=== PATIENT | female | born 1970 | race Caucasian/White ===

== ENCOUNTER 2016-12-01 17:48 | Emergency (ER) | payer OTHER ==
[~2016-12-01] VITALS: Ht 157.5 cm; Wt 54.0 kg
[~2016-12-01 17:48] MED LIST: DOXY100C PO; IMI25 PO
[2016-12-01 17:53] VITALS: BP 158/96; PULSE 94; RESP 18; O2SAT 99
--- NOTE | 2016-12-01 18:35 | ED.REPORT ---
HPI-General Illness Date of Service Dec 01, 2016 ED Provider: Joel Ortega DO A 46 year old female with a history of heroin abuse presents to the ED requesting a Suboxone prescription. The pt is a patient at [facility] on 16 mg of Suboxone per day, but missed her appointment this week. She is now experiencing withdrawal symptoms including diarrhea, abdominal pain, nausea and anxiety, and is concerned that she will relapse. The pt called [facility] and was instructed to call on Monday for a new appointment. Nursing Notes Stated Complaint: HEROIN/SUBOXONE WITHDRAWAL Chief Complaint: Substance Abuse Nursing Notes Reviewed: Yes Allergies: Coded Allergies: Penicillins (Verified Allergy, Severe, Anaphalatic, 05/30/16) sulfamethoxazole (Verified Allergy, Mild, Hives, Whelps, 05/30/16) trimethoprim (Verified Allergy, Mild, Hives, Whelps, 05/30/16) Scheduled Doxycycline Hyclate (Vibramycin) 100 Mg Capsule 100 MG PO BID Scheduled PRN Sumatriptan (Imitrex) 25 Mg Tablet 25 MG PO [id number] PRN PRN Headache General Time Seen by MD: 18:35 Chief Complaint Other (Meidcation request) Hx Obtained From: Patient Arrived By: Walk-in Sudden in Onset?: No Symptom Duration: Since onset Recent Healthcare: No recent hospitalization Similar Sx Previous: Yes Past Medical History Past Medical History Rheumatoid arthritis Reports: Migraines Past Surgical History Reports: Smoking History Current Every Day Smoker Social History previous heroin abuse Alcohol Use: Denies alcohol use Ambulatory Status Independent Review of Systems Full Review of Systems Respiratory: Denies: Non-productive cough, Shortness of breath Cardiovascular: Denies: Chest pain GI: Reports: Abdominal pain, Diarrhea, Nausea Musculoskeletal: Denies: Back pain, Neck pain Skin: Denies Rash Psychiatric: Reports: Anxiety Complete sys rev & neg: except as marked. Physical Exam Vital Signs Vital Signs Date Time Temp Pulse Resp B/P Pulse Ox O2 Delivery O2 Flow Rate FiO2 12/01/16 19:57 36.2 88 20 175/96 94 Room Air 12/01/16 17:53 37.1 94 18 158/96 99 Room Air Initial VS: Reviewed General/Constitutional: Awake, Alert Head / Eyes: Atraumatic, Normocephalic, PERRL, EOMI ENT: Atraumatic, Airway patent, Mucous membranes moist Neck: Atraumatic, Supple, Full range of motion Respiratory / Chest: Atraumatic, Breath sounds NL, Breath sounds = bilat, No respiratory distress Cardiovascular: Heart rate NL, Regular rhythm, Heart sounds NL Abdomen: Atraumatic, Soft, Non-tender Back: Atraumatic, Full range of motion Upper Extremities Upper Extremity / MS: Atraumatic, Full range of motion Lower Extremity / Pelvis / MS: Atraumatic, Full range of motion Skin: Atraumatic, Color NL, No rash, Warm, Dry Neurologic: Oriented X3, Speech NL, No motor deficits, No sensory deficits Psychiatric: Affect NL, Mood NL Interpretation & Diagnostics Pulse Oximetry Interpretation Pulse Oximetry Interpretation: 99% on room air Pulse Oximetry: Pulse Ox normal Re-Eval/Medical Decision Med Decision/Clinical Course I had a lengthy discussion with Mary regarding Subutex and heroin combination. I warned her that the medicines given tonight did not have the naloxone. I made it very clear to her that if she chooses to use heroin and can and most likely will be life-threatening. We did arrange for her to have a Narcan take home administrative pack. I consulted with Dr. Knight. She was given 8 mg of the Subutex tonight. She is to call first thing tomorrow morning to [facility]. I strongly recommend that she is never abuses heroin again. She agrees to this plan. Source of Hx: Old records Time of Eval: 19:27 Re-Evaluation/Progress Note: Pt rechecked, who is comfortable. The diagnosis and plan for discharge is discussed. The pt understands and agrees with the plan. All questions are addressed at this time. Consultation : Referral / Consult Name: Brendan Ibarra MD Call Returned at: 19:04 Note: Consulted with Dr. Ibarra, Suboxone provider, regarding pt's case. Dr. Ibarra recommends Buprenorphine and follow up at [facility]. Counseled Regarding: Diagnosis, Need for follow-up, When/why to return to ED Discharge & Departure Primary Impression: Opiate withdrawal Disposition: Home Discharge Condition All VS Reviewed: Yes Condition: Stable Patient Instructions: Opioid Dependence (ED), Opioid Withdrawal (ED) Additional Instructions: You were given 8 mg of Buprenorphine in the emergency department. The Buprenorphine does not have the Naloxone in it so use of other opiates while taking the Buprenorphine may lead to life threatening respiratory depression. Keep the Narcan kit with you at all times. If you feel like you are going to abuse heroin, return to the emergency department immediately. If you do abuse heroin, make sure someone can give you the naloxone if you experience respiratory depression. Call [facility] in the morning to see if you can can get an appointment sooner. Return to the emergency department if you experiencing new or worsening symptoms, including withdrawal symptoms. Referrals: Kayden Holland MD (PCP) Scribe Attestation Portions of this note were transcribed by Nyla Rader. I, Dr. Ortega personally performed the history, physical exam and medical decision-making; I reviewed and confirmed the accuracy of the information in the transcribed note. Signed by: Jose Daniel Gomez, 12/01/16 and 1960. copies to: Kayden Holland MD, Todd P DO Dec 01, 2016 18:35 NYLA RADER Dec 01, 2016 18:54
[2016-12-01] MEDS ORDERED: Buprenorphine 2 mg SL Tablet SL ONE (19:10)
[2016-12-01] MEDS ORDERED: _Naloxone 2 mg/2 mL 2 Syringe Kit (NASAL USE) NASAL PRN (19:30)
[2016-12-01 19:57] VITALS: BP 175/96; PULSE 88; RESP 20; O2SAT 94
== END 2016-12-01 19:57 | disposition home or self-care (01) ==
LOC: SED 17:48
DX: F11.23 Opioid dependence with withdrawal (principal); R19.7 Diarrhea, unspecified; R10.9 Unspecified abdominal pain; R11.0 Nausea; F41.9 Anxiety disorder, unspecified; F17.200 Nicotine dependence, unspecified, uncomplicated; Z88.0 Allergy status to penicillin; Z88.2 Allergy status to sulfonamides; Z88.8 Allergy status to other drugs, medicaments and biological substances

== ENCOUNTER 2017-03-12 18:39 | Emergency (ER) | payer OTHER ==
[~2017-03-12] VITALS: Ht 158.8 cm; Wt 54.5 kg
[2017-03-12 18:43] VITALS: BP 149/84; PULSE 83; RESP 16; O2SAT 99
[2017-03-12] MEDS ORDERED: SERT25TA2 PO (18:48)
[2017-03-12] MEDS ORDERED: LISI10TA PO (18:48)
--- NOTE | 2017-03-12 19:11 | ED.REPORT ---
HPI-Chest Pain 40 and Over Date of Service Mar 12, 2017 ED Provider: Abel Reyes MD Patient is a 46 year old female with a history of hypertension and migraines who presents to the ED complaining of chest pain onset around 1700. Associated symptoms include pain that radiates through her back, a headache for the past week, rhinorrhea and chills. The patient describes the pain as sharp and stabbing. She states that the pain is intermittent and an episode lasts about 10 -30 seconds. Patient denies pain with deep inhalation. The patient started Lisinopril on 02/24/17 and thinks her headache may be related to her new medication. She states that she woke up with the a bilateral, frontal headache. Patient reports that her headache is different than her usual migraine. The patient has tried using Alleve and had mild relief of her headache two days ago but it has not helped today. Nursing Notes Stated Complaint: CHEST PAIN, HEADACHE Chief Complaint: Chest Pain Nursing Notes Reviewed: Yes Allergies: Coded Allergies: Penicillins (Verified Allergy, Severe, Anaphalatic, 03/12/17) sulfamethoxazole (Verified Allergy, Mild, Hives, Whelps, 03/12/17) trimethoprim (Verified Allergy, Mild, Hives, Whelps, 03/12/17) Scheduled Famotidine (Pepcid) 40 Mg Tablet 40 MG PO BID Lisinopril (Lisinopril) 10 Mg Tablet 10 MG PO DAILY Sertraline HCl (Zoloft) 25 Mg Tablet 25 MG PO DAILY General Time Seen by MD: 19:11 Chief Complaint Chest pain Hx Obtained From: Patient Arrived By: Walk-in Sudden in Onset?: Yes Onset Occurred: 1 - 4 hours ago Symptom Duration: Since onset Location: : Substernal Quality: Sharp, Stabbing Radiation: : Back Severity: Current: Moderate Similar Sx Previous: No Past Medical History Past Medical History Rheumatoid arthritis Reports: Hypertension Reports: Migraines Past Surgical History Reports: Smoking History Current Every Day Smoker Social History previous heroin abuse Alcohol Use: Denies alcohol use Other Social History: Good social support Ambulatory Status Independent Review of Systems Constitutional: Reports: Chills, Denies: Fever Cardiovascular: Reports: Chest pain Musculoskeletal: Reports: Back pain Neurologic: Reports: Headache Complete sys rev & neg: except as marked. Allergy / Immune: Reports: Rhinorrhea Physical Exam Initial Vital Signs Vital Signs (First) Date Time Temp Pulse Resp B/P Pulse Ox O2 Delivery O2 Flow Rate FiO2 03/12/17 18:43 36.8 83 16 149/84 99 Room Air Initial VS: Reviewed General/Constitutional: Awake, Alert Respiratory / Chest: Atraumatic, Breath sounds NL, Breath sounds = bilat, No respiratory distress Cardiovascular: Heart rate NL, Regular rhythm, Heart sounds NL, No gallop, No murmurs, No rubs Abdomen: Atraumatic, Soft, Non-tender, BS normoactive Neck: Atraumatic, Supple Skin: Atraumatic, Color NL, No rash, Warm, Dry Neurologic: Oriented X3, Speech NL Head / Eyes: Atraumatic, Normocephalic, PERRL, EOMI, No photophobia ENT: Atraumatic, Airway patent, Mucous membranes moist post nasal drip frontal tenderness bilaterally maxillary tenderness on the left Interpretation & Diagnostics Lab Results Interpretation Result Diagram: 03/12/17 1950 03/12/17 1950 Test 03/12/17 19:50 White Blood Count 8.0th/mm3 (3.8-10.1) Red Blood Count 4.29mil/mm3 (3.90-5.20) Hemoglobin 14.5g/dL (12.0-15.6) Hematocrit 40.7% (35.0-46.0) Mean Corpuscular Volume 94.9fL (81-100) Mean Corpuscular Hemoglobin 33.8pg (27.0-35.0) Mean Corpuscular Hemoglobin Concent 35.6% (32.0-37.0) Red Cell Distribution Width 12.0% (12.3-15.4) Platelet Count 209bil/L (150-400) Neutrophils (%) (Auto) 51.2% (40-74) Lymphocytes (%) (Auto) 38.2% (14-46) Monocytes (%) (Auto) 8.5% (4-12) Eosinophils (%) (Auto) 1.4% (0-5) Basophils (%) (Auto) 0.5% (0-3) Sodium Level 137mEq/L (134-144) Potassium Level 4.0mEq/L (3.5-5.2) Chloride Level 98mEq/L (97-108) Carbon Dioxide Level 24mmol/L (18-29) Blood Urea Nitrogen 16mg/dL (6-24) Creatinine 0.70mg/dL (0.57-1.00) Estimat Glomerular Filtration Rate 128mL/min (>59) Glucose Level 96mg/dL (60-99) Calcium Level 9.4mg/dL (8.5-10.1) Magnesium Level 2.2mg/dL (1.6-2.6) Total Bilirubin 0.2mg/dL (0.0-1.2) Aspartate Amino Transf (AST/SGOT) 29U/L (0-50) Alanine Aminotransferase (ALT/SGPT) 22U/L (0-32) Alkaline Phosphatase 66U/L (25-150) Troponin T < 0.010ug/L (0.0-0.011) Total Protein 7.9g/dL (6.4-8.4) Albumin 4.3g/dL (3.4-5.0) ECG Interpretation ECG Interpretation: LVH no acute changes Time: 19:19 Interpreted by: ED physician Normal ECG Interpretation: Normal rate (85), Normal sinus rhythm Repeat ECG: Repeat ECG unchanged X-Ray Chest Interpretation Chest Xray Interpretation: IMPRESSION: No acute process. Dictated by: Gorge Raza M.D. on 03/12/2017 at 19:12 Approved by: Gorge Raza M.D. on 03/12/2017 at 19:13 Interpretation / Wet Read by: Interpret - Radiologist Re-Eval/Medical Decision Med Decision/Clinical Course 38-year-old female complaining of chest pain and headache. The chest pain lasts for seconds only. There are no ischemic EKG changes troponin is normal she does not require further evaluation for pulmonary embolism based on PERC. Given that she has been taking a nonsteroidal recently I suspect esophageal spasm. The headache does not have any red flag findings. She has some postnasal drip and she has frontal tenderness to percussion. I do not believe that imaging is indicated tonight, we will treat her for sinus congestion. She had a history of migraines by her report and requested a prescription for Imitrex, given her current complaints of chest pain I think that would be better off not starting Imitrex at this point. Time of Eval: 21:00 Re-Evaluation/Progress Note: Discussed EKG and X-ray results. Counseled Regarding: Diagnosis, Lab results, Need for follow-up, When/why to return to ED Discharge & Departure Primary Impression: Headache Headache type: unspecified Headache chronicity pattern: acute headache Intractability: intractable Qualified Code: R51 - Headache Additional Impression: Non-cardiac chest pain Disposition: Home Discharge Condition All VS Reviewed: Yes Condition: Stable Patient Instructions: Esophageal Spasm (ED) Additional Instructions: Your emergency department evaluation included an interview, examination, ECG, labs and chest X-ray. You should only take 2 Alleve up to twice a day, best to take these with food. You can also try using Tylenol for your headache. Do not take more than 3,000mg a day. You can try using a nasal steroid spray daily. This can help drain your sinuses. Try using Pepcid twice a day to help with the chest pain. You can take 1 Zofran every 6 hours as needed for nausea. Follow up with your primary care physician in the next week. Return to the emergency department if you develop any new or concerning symptoms including fever, prolonged chest pain, vomiting or worsening symptoms. Referrals: [facility] (PCP) Jose Daniel Attestation Portions of this note were transcribed by Lynn Soto. I, Dr. Reyes personally performed the history, physical exam and medical decision-making; I reviewed and confirmed the accuracy of the information in the transcribed note. Signed by: Jose Daniel Arevalo, 03/12/17 copies to: [facility] Abel Reyes MD Mar 12, 2017 19:11 Tatyana Soto Mar 12, 2017 19:30
--- NOTE | 2017-03-12 19:14 | DRSVH ---
PROCEDURE: X-RAY CHEST ONE VIEW, PORTABLE ([id number]) INDICATIONS: chest pain TECHNIQUE: One view of the chest was acquired. COMPARISON: None. FINDINGS: Surgical changes and devices: None. Lungs and pleura: No pleural effusions or pneumothorax. Lungs are clear. Mediastinum: Mediastinal contours appear normal. Heart size is normal. Bones and chest wall: No suspicious bony lesions. Overlying soft tissues appear unremarkable. IMPRESSION: No acute process. Dictated by: Gorge Raza M.D. on 03/12/2017 at 19:12 Approved by: Gorge Raza M.D. on 03/12/2017 at 19:13
[2017-03-12 19:57] LABS: BASOPHILS % (AUTO) 0.5 % (0-3); EOSINOPHILS % (AUTO) 1.4 % (0-5); MONOCYTES % (AUTO) 8.5 % (4-12); Mean Corpuscular Hemoglobin 33.8 pg (27.0-35.0); Mean Corpuscular Volume 94.9 fL (81-100); NEUTROPHILS % (AUTO) 51.2 % (40-74); Platelet Count 209 bil/L (150-400)
[2017-03-12 20:23] LABS: TROPONIN T < 0.010 ug/L (0.0-0.011)
[2017-03-12 20:25] LABS: Magnesium 2.2 mg/dL (1.6-2.6)
[2017-03-12 20:55] VITALS: BP 122/80; PULSE 76; RESP 18; O2SAT 72
[2017-03-12] MEDS ORDERED: _Ondansetron ODT 4 mg Tablet PO PRN (21:10)
[2017-03-12] MEDS ORDERED: FAMO40TA72 PO (21:12)
[2017-03-12 21:40] VITALS: BP 146/91; PULSE 84; RESP 18; O2SAT 96
== END 2017-03-12 21:41 | disposition home or self-care (01) ==
LOC: SED 18:39
DX: R51 Headache (principal); R07.89 Other chest pain; I10 Essential (primary) hypertension; M06.9 Rheumatoid arthritis, unspecified; F17.200 Nicotine dependence, unspecified, uncomplicated; Z88.0 Allergy status to penicillin; Z88.8 Allergy status to other drugs, medicaments and biological substances